=== PATIENT | male | born 1965 | race Caucasian/White ===

== ENCOUNTER 2021-06-08 08:14 | Outpatient (REF) | payer OTHER, SELFPAY ==
[2021-06-08 11:33] LABS: MANUAL DIFF FLAG NO
[2021-06-08 11:39] LABS: Basophils Absolute Auto 0.1 X10*3/uL (0.0-0.2); Basophils Percent Auto 0.8 % (0-2); Eosinophils Absolute Auto 0.1 X10*3/uL (0.0-0.4); Eosinophils Percent Auto 1.2 % (0-4); Hematocrit 48.5 % (42.0-52.0); Hemoglobin 15.9 g/dl (14.0-18.0); Imm Gran Abs Auto 0.04 X10*3/uL (0.00-0.03); Imm Gran Pct Auto 0.6 % (0.0-0.4); Lymphocytes Absolute Auto 1.4 X10*3/uL (1.2-4.9); Lymphocytes Percent Auto 19.9 % (20-40); Mean Corpuscular HGB Conc 32.8 g/dl (31.0-36.0); Mean Corpuscular Hemoglobin 28.6 pg (27.0-33.0); Mean Corpuscular Volume 87.2 fL (80.0-98.0); Mean Platelet Volume 11.2 fL (9.4-12.4); Monocytes Absolute Auto 0.5 X10*3/uL (0.1-1.2); Monocytes Percent Auto 6.8 % (2-11); Neutrophils Absolute Auto 5.1 x10*3/uL (2.0-8.3); Neutrophils Percent Auto 70.7 % (45-73); Platelet Count 190 X10*3/uL (160-400); Red Blood Count 5.56 X10*6/uL (4.60-5.80); Red Cell Distribution Width 12.3 % (11.0-16.0); White Blood Count 7.3 X10*3/uL (4.8-10.8)
[2021-06-08 12:05] LABS: Alanine Aminotransferase 31 U/L (0-40); Albumin Level 4.6 g/dL (3.5-5.0); Alkaline Phosphatase 72 U/L (39-117); Anion Gap 14 (12-20); Aspartate Amino Transferase 21 U/L (5-37); Bilirubin Total 0.8 mg/dL (0.0-1.0); Blood Urea Nitrogen 17 mg/dL (9-16); Calcium 9.6 mg/dL (8.4-10.2); Carbon Dioxide 26 mmol/L (22-29); Chloride 104 mmol/L (96-108); Cholesterol 171 mg/dL; Estimated Glomerular Filt Rate > 60; Glucose Fasting 153 mg/dL (60-99); HDL Cholesterol 35 mg/dL; LDL Cholesterol Calculated 98 mg/dl; Potassium 4.5 mmol/L (3.3-5.1); Sodium 139 mmol/L (135-145); Total Protein 6.9 g/dL (6.5-8.0); Triglycerides 192 mg/dL
[2021-06-08 12:21] LABS: Thyroid Stimulating Hormone 2.01 uIU/mL (0.32-4.0)
[2021-06-09 11:47] LABS: Free Prostate Spec Ag 0.7 ng/mL; Percent Free Prostate Spec Ag 29 % (calc) (>25); Prostate Specific Ag Total 2.4 ng/mL (< OR = 4.0)
[2021-06-10 14:11] LABS: Vitamin D 25-OH Total 32.4 ng/mL (>30)
== END 2021-06-08 08:15 | disposition home or self-care (01) ==
LOC: HO.HMGCLDS 08:14
PROVIDERS: PCP Internal Medicine; Visit Provider Internal Medicine
DX: I10 Essential (primary) hypertension (principal); E78.00 Pure hypercholesterolemia, unspecified; E55.9 Vitamin D deficiency, unspecified; Z91.09 Other allergy status, other than to drugs and biological substances; Z12.5 Encounter for screening for malignant neoplasm of prostate
CPT/HCPCS: 36415; 80053; 80061; 82306; 84154; 84443; 85025

== ENCOUNTER → 2021-08-04 09:00 | Outpatient (REF) | payer OTHER, SELFPAY ==
--- NOTE | 2021-08-04 09:04 | CA_ITS ---
Transthoracic Echocardiogram Patient (Last, First, Middle): Kenan Rojas B Gender: Male Date of : 1965 Age: 56 Procedure Date: 08/04/2021 Procedure Type: Transthoracic Echocardiogram Location: OP Height: 172.72 cm Weight: 74.84 kg BSA: 1.88 m2 Heart Rate: bpm BP: 136 / 68 mmHg Bolt Threader: SB Referring MD: Mitchel Esquivel MD DO Symptoms: I35.0 NON RHEU AVS Study Quality: Adequate ECG Rhythm: Sinus Conclusions: - The left ventricular systolic function is normal. The calculated ejection fraction is 55% by biplane method. - There is severe aortic valve stenosis. - There is mild dilatation of the ascending aorta measuring 4.20 cm. Findings Left Ventricle There is mildly increased left ventricular wall thickness. The left ventricular systolic function is normal. The calculated ejection fraction is 55% by biplane method. There is no evidence of regional wall motion abnormalities. Diastolic function is normal for age. Top normal left ventricular size. Right Ventricle Normal right ventricular cavity size and systolic function. Atria Both atria are normal in size. Aortic Valve There is severe calcification of the aortic valve. There is severe aortic valve stenosis. The peak aortic velocity is 4.18 m/s with a calculated peak gradient of 84 mmHg. The mean gradient is 42 mmHg. The aortic valve area is 0.94 cm2. There is mild aortic valve regurgitation. Possible bicuspid aortic valve. Mitral Valve The mitral valve appears normal. There is no mitral valve regurgitation. There is no mitral valve stenosis. Pulmonic Valve The pulmonic valve is likely normal. Tricuspid Valve There is no tricuspid valve regurgitation. Tricuspid regurgitation envelope is inadequate for calculation of right ventricular systolic pressure. Great Vessels The sinuses of valsalva is normal in size. There is mild dilatation of the ascending aorta measuring 4.20 cm. Venous The inferior vena cava was not well visualized. Pericardium/Pleural There is no evidence of pericardial effusion. Prior Study Comparison Changes noted compared to prior study dated: 04/24/2018. Progression of aortic valve stenosis. Measurements 2D Linear Measurements IVSd: 1.08 0.6-0.9/0.6-1.0 cm LVIDd: 5.44 3.9-5.3/4.2-5.9 cm LVIDd Index: 2.89 2.4-3.2/2.2-3.1 cm/m2 LVIDs: 3.96 2.0-3.6 cm LVPWd: 1.07 0.7-1.1 cm LA Diam: 3.40 2.7-3.8/3.0-4.0 cm LAIDs Index: 1.81 1.5-2.3 cm/m2 LV Mass: 287.31 67-162/88-224 g LV Mass Index: 152.82 43-95/49-115 g/m2 LVOT Diam: 2.10 3.0+(-)1.3 cm 2D Systolic Function EF 4C: 54.40 >55% EF 2C: 58.80 >55% EF BiP: 55.30 >55% Mitral Valve MV Pk E: 0.72 MV PK A: 0.45 MV Decel Time: 124.00 E/A: 1.60 E'Lateral: 6.08 E'Medial: 6.30 E/E' Med: 11.50 E/E' Lat: 11.90 PHT: 36.00 MVA PHT: 6.11 Decel [place]: 5.84 Aortic Valve AoV Pk Jay[place]: 4.18 AoV Mn [place]: 3.06 AoV VTI: 0.96 AoV Pk Grad: 84.00 Aov Mn Grad: 42.20 TAMANNA Cont.VTI: 0.94 AI Pk Jay[place]: 4.05 AI [place]: 3.39 LVOT LVOT Pk Jay[place]: 0.93 LVOT Mn [place]: 0.69 LVOT VTI: 0.26 LVOT Pk Grad: 4.00 LVOT Mn Grad: 2.00 LVOT Diam: 2.10 LVOT Area: 3.46 Diastolic Function MV Pk E: 0.72 MV Pk A: 0.45 E/A: 1.60 E'Medial: 6.30 E/E' Med: 11.50 E' Laterial: 6.08 E/E' Lat: 11.90 Right Ventricle TAPSE (mm): 19.40 TVS' [place]: 8.59 Great Vessels Aorta Sinus of Valsalva: 3.21 2.0-3.[address] [place]: 3.14 1.7-3.4 cm Ao Asc: 4.20 2.1-3.4 cm Ao Arch: 2.60 Pulmonary Valve PV Pk Jay[place]: 0.87 Peak PV Grad: 3.00 Updated in Other Vendor System with Status of Final Josue Colon MD electronically signed on 08/06/2021 12:05:11 PM with status of Final
== END ==
LOC: HO.CARD 09:00
PROVIDERS: PCP Internal Medicine; Visit Provider Internal Medicine
DX: I35.0 Nonrheumatic aortic (valve) stenosis (principal)
CPT/HCPCS: 93306

== ENCOUNTER 2021-08-09 08:03 | Outpatient (REF) | payer OTHER, SELFPAY ==
--- NOTE | ~2021-08-09 | XR_ITS ---
EXAMINATION: XR SHOULDER, RIGHT CLINICAL INFORMATION: Pain COMPARISON: None TECHNIQUE: Three views of the right shoulder. FINDINGS: Bone alignment is normal. No fracture or dislocation is seen. The glenohumeral joint is normal. 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 There are faint soft tissue calcifications adjacent to the greater tuberosity. 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
== END 2021-08-09 08:04 | disposition home or self-care (01) ==
LOC: HO.HOSX 08:03
PROVIDERS: Visit Provider Physician Assistant
DX: M75.101 Unspecified rotator cuff tear or rupture of right shoulder, not specified as traumatic (principal)
CPT/HCPCS: 20610; 73030; J1040

== ENCOUNTER → 2021-08-23 13:49 | Outpatient (BNVA) | payer OTHER, SELFPAY | PROVIDERS: PCP Internal Medicine; Referring Provider Internal Medicine; Visit Provider Internal Medicine Cardiovascular Disease | DX: I35.0 Nonrheumatic aortic (valve) stenosis (principal) | CPT/HCPCS: 93005 ==

== ENCOUNTER 2021-09-01 15:00 | Outpatient (RCR) | payer OTHER, SELFPAY ==
--- NOTE | 2021-08-27 14:33 | MHC.PT.EP ---
[facility] [place] Office [place] Office [place] Office [address] [phone] F: [phone] F: [phone] F: [phone] F: [phone] Physical Therapy Plan of Care Date of Evaluation: Date of Surgery: NA Diagnosis: R SHLDER PAIN, PAINFUL ARC SYNDROME R Assessment: Pt IS 56 YO RHD M REFERRED TO PT FROM [facility]THO ([place]) WITH R SHOULDER PAINFUL ARC SYNDROME. 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 PRESENTS WITH SXS OF IMPINGEMENT R SHLDER WITH ANT HUMERUS POSTURE, SOME TIGHTNESS IN CAPSULE WITH LIMITED ABD AND ER ROM, DECREASED R SHLDER STRENGTH. REPORTS TEMP RELIEF WITH CORTISONE INJECTION. GOOD PT CANDIDATE TO ADDRESS THESE ISSUES. OF NOTE Pt WITH R SHIFTED POSTURE (REPORTS NO HX OF SCOLIOSIS OR BACK ISSUES) Frequency and Duration: The patient will be seen 2X/WK X 6 WKS Short Term Goals: 1. INCREASED POSTURE AWARENESS AND AWARENESS SHLDER CARE 2. I HEP WITH DC EX PLAN Assistant Dean Goals: 1. INCREASED R SHLDER ER AND ABD ROM 10 DEGREES EA 2. DECREASED R SHLDER PAIN AT LEAST 50% WITH ADLS Treatment Plan: Modalities to reduce pain, spasms and effusion. Manual therapy to restore motion and function. Therapeutic exercise to improve strength and flexibility. Neuromuscular re-education for posture and balance. Therapeutic activities to return to functional activities of daily living. Electronically signed by: LANDY CLEANING PT Please sign and return to therapist. Thank you for your referral.
--- NOTE | 2021-09-22 15:10 | MHC.PT.DC ---
[facility] [place] Office [place] [facility] [place] Office [address] Dannielle Lipscomb [address] [phone] F: [phone] F: [phone] F: [phone] F: [phone] Physical Therapy Discharge Report Diagnosis: R SHLDER PAIN, PAINFUL ARC SYNDROME R Date of Surgery: NA Date of Evaluation: 08/27/21 Date of Discharge: 09/22/21 Treatments to Date: 3 Cancellations to Date: No Shows to Date: Discharge Status: Patient Elected to Stop Discharge Summary: Pt SEEN FOR INIT EVAL AND 2 VISITS STARTED ON HEP FOR R SHOULDER. PER ASSESSMENT AT LAST SESSION ON 09/01/21 PER NOTE FROM MICHAEL MORALES JEWELRY DRILL OPERATOR :'Kenan needed frequent VC throughout exercises to maintain correct movement pattern. Wall flexion was trialed with a RTB but he could not maintain correct pattern due to coordination.' Pt THEN CANCELLED LAST 2 SCHEDULED APPTS STATING (PER ASSEMBLER DRY CELL AND BATTERY NOTE) COPAY IS TOO MUCH FOR HIM Electronically signed by: LANDY CLEANING PT Please sign and return to therapist. Thank you for your referral.
== END 2021-09-22 15:11 | disposition home or self-care (01) ==
LOC: HO.PT 15:00
PROVIDERS: PCP Internal Medicine; Visit Provider Physician Assistant
DX: M75.101 Unspecified rotator cuff tear or rupture of right shoulder, not specified as traumatic (principal)
CPT/HCPCS: 97110; 97161; 97535

== ENCOUNTER → 2022-01-20 13:03 | Outpatient (REF) | payer OTHER, SELFPAY ==
--- NOTE | 2022-01-20 13:05 | CA_ITS ---
Transthoracic Echocardiogram Amended Patient (Last, First, Middle): Kenan Rojas B Gender: Male Date of : 1965 Age: 56 Procedure Date: 01/20/2022 Procedure Type: Transthoracic Echocardiogram Location: OP Height: 175.26 cm Weight: 70.31 kg BSA: 1.85 m2 Heart Rate: bpm BP: 112 / 64 mmHg Flanging Operator: YENY Referring MD: George Hinds MD Director Sales And Trade Marketing: George Hinds MD Symptoms: I35.0 - Nonrheumatic aortic (valve) stenosis Study Quality: Adequate Conclusions: - Normal left ventricular size, thickness, systolic function, and wall motion. The visually estimated ejection fraction is between 65-70%. - E/E prime ratio is between 8 and 15 consistent with indeterminate filling pressures. - Normal right ventricular cavity size and systolic function. - There is severe calcification of the aortic valve. There is moderate thickening of the aortic valve. There is severe aortic valve stenosis. The peak aortic velocity is 4.68 m/s with a calculated peak gradient of 88 mmHg. The mean gradient is 53 mmHg. The aortic valve area is 0.78 cm2. There is moderate aortic valve regurgitation. - There is mild dilatation of the ascending aorta measuring 4.20 cm. Findings Left Ventricle Normal left ventricular size, thickness, systolic function, and wall motion. The visually estimated ejection fraction is between 65-70%. Abnormal diastolic function is noted. Spectral Doppler is indicative of a pseudonormal filling pattern. E/E prime ratio is between 8 and 15 consistent with indeterminate filling pressures. Right Ventricle Normal right ventricular cavity size and systolic function. Atria The left atrium is severely dilated. The right atrium is mildly dilated. Aortic Valve There is severe calcification of the aortic valve. There is moderate thickening of the aortic valve. There is severe aortic valve stenosis. The peak aortic velocity is 4.68 m/s with a calculated peak gradient of 88 mmHg. The mean gradient is 53 mmHg. The aortic valve area is 0.78 cm2. There is moderate aortic valve regurgitation. Mitral Valve Normal mitral valve structure and function. There is no mitral valve regurgitation. There is no mitral valve stenosis. Pulmonic Valve The pulmonic valve is likely normal. Tricuspid Valve Normal tricuspid valve structure. There is trace tricuspid valve regurgitation. Tricuspid regurgitation envelope is inadequate for calculation of right ventricular systolic pressure. Normal right atrial pressure. Great Vessels There is mild dilatation of the ascending aorta measuring 4.20 cm. The visualized portions of the pulmonary artery and branches are normal. Venous The inferior vena cava is normal in size and collapses greater than 50% with inspiration. Pericardium/Pleural There is no evidence of pericardial effusion. Prior Study Comparison Changes noted compared to prior study dated: 08/04/2021. Severe present. gradient is higher and valve area has worsened. Measurements 2D Linear Measurements IVSd: 1.08 0.6-0.9/0.6-1.0 cm LVIDd: 4.87 3.9-5.3/4.2-5.9 cm LVIDd Index: 2.63 2.4-3.2/2.2-3.1 cm/m2 LVIDs: 3.18 2.0-3.6 cm LVPWd: 1.03 0.7-1.1 cm LA Diam: 4.20 2.7-3.8/3.0-4.0 cm LAIDs Index: 2.27 1.5-2.3 cm/m2 LV Mass: 233.55 67-162/88-224 g LV Mass Index: 126.24 43-95/49-115 g/m2 LVOT Diam: 2.10 3.0+(-)1.3 cm 2D Volumes LA Vol: 47.70 2D Systolic Function EF 4C: 62.30 >55% EF 2C: 59.60 >55% EF BiP: 60.90 >55% Mitral Valve MV Pk E: 0.96 MV PK A: 0.55 MV Decel Time: 159.00 E/A: 1.80 E'Lateral: 8.27 E'Medial: 7.18 E/E' Med: 13.40 E/E' Lat: 11.70 PHT: 46.00 MVA PHT: 4.78 Decel [place]: 6.08 Aortic Valve AoV Pk Jaylen: 4.68 AoV Mn [place]: 3.45 AoV VTI: 1.17 AoV Pk Grad: 88.00 Aov Mn Grad: 53.00 TAMANNA Cont.VTI: 0.78 LVOT LVOT Pk [place]: 1.01 LVOT Mn [place]: 0.69 LVOT VTI: 0.27 LVOT Pk Grad: 4.00 LVOT Mn Grad: 2.00 LVOT Diam: 2.10 LVOT Area: 3.46 Diastolic Function MV Pk E: 0.96 MV Pk A: 0.55 E/A: 1.80 E'Medial: 7.18 E/E' Med: 13.40 E' Laterial: 8.27 E/E' Lat: 11.70 Right Ventricle TAPSE (mm): 28.10 TVS' [place]: 11.70 Tricuspid Valve RA Press: 3.00 Great Vessels Aorta Sinus of Valsalva: 3.53 2.0-3.5 cm Ao Asc: 4.20 2.1-3.4 cm Updated in Other Vendor System with Status of Final George Hinds MD electronically signed on 01/31/2022 1:19:40 PM with status of Final
== END ==
LOC: HO.CARD 13:03
PROVIDERS: PCP Internal Medicine; Visit Provider Internal Medicine Cardiovascular Disease
DX: I35.0 Nonrheumatic aortic (valve) stenosis (principal)
CPT/HCPCS: 93306

== ENCOUNTER 2022-02-15 07:18 | Outpatient (REF) | payer OTHER, SELFPAY ==
[2022-02-15 07:53] LABS: Hematocrit 48.9 % (42.0-52.0); Mean Corpuscular HGB Conc 32.7 g/dl (31.0-36.0); Mean Corpuscular Hemoglobin 28.6 pg (27.0-33.0); Mean Corpuscular Volume 87.3 fL (80.0-98.0); Mean Platelet Volume 10.6 fL (9.4-12.4); Platelet Count 158 X10*3/uL (160-400); Red Cell Distribution Width 12.2 % (11.0-16.0); White Blood Count 8.8 X10*3/uL (4.8-10.8)
[2022-02-15 07:59] LABS: INTERNATIONAL NORM RATIO 1.1 (0.9-1.1); Prothrombin Time 12.8 SEC (10.0-13.1)
[2022-02-15 09:40] LABS: Anion Gap 14 (12-20); Blood Urea Nitrogen 20 mg/dL (9-16); Calcium 9.8 mg/dL (8.4-10.2); Carbon Dioxide 28 mmol/L (22-29); Chloride 104 mmol/L (96-108); Estimated Glomerular Filt Rate > 60; Glucose Random 136 mg/dL (60-115); Potassium 4.5 mmol/L (3.3-5.1); Sodium 141 mmol/L (135-145)
== END 2022-02-15 07:19 | disposition home or self-care (01) ==
LOC: HO.LAB 07:18
PROVIDERS: PCP Internal Medicine; Visit Provider Internal Medicine Cardiovascular Disease
DX: I35.0 Nonrheumatic aortic (valve) stenosis (principal)
CPT/HCPCS: 36415; 80048; 85027; 85610

== ENCOUNTER → 2022-04-07 15:35 | Outpatient (BNVA) | payer OTHER, SELFPAY | PROVIDERS: PCP Internal Medicine; Visit Provider Internal Medicine Cardiovascular Disease | DX: Z95.2 Presence of prosthetic heart valve (principal) | CPT/HCPCS: 93005 ==

== ENCOUNTER → 2022-04-12 09:51 | Outpatient (REF) | payer OTHER, SELFPAY ==
--- NOTE | 2022-04-12 09:55 | CA_ITS ---
Transthoracic Echocardiogram Patient (Last, First, Middle): Kenan Rojas B Gender: Male Date of : 1965 Age: 56 Procedure Date: 04/12/2022 Procedure Type: Transthoracic Echocardiogram Location: OP Height: 175.26 cm Weight: 70.31 kg BSA: 1.85 m2 Heart Rate: 62 bpm BP: 115 / 68 mmHg Quality Control Specialist: TO Referring MD: George Hinds MD Sausage Stuffer: George Hinds MD Symptoms: Z95.2 - Presence of prosthetic heart valve Study Quality: Adequate w contrast ECG Rhythm: Sinus Conclusions: - The left ventricular systolic function is mildly decreased. The calculated ejection fraction is 50% by biplane method. - There is moderate to severely decreased right ventricular systolic function. - A bioprosthetic aortic valve is present. The prosthetic aortic valve appears to be functioning normally. Findings Procedure Information Contrast agent, definity, is being given per protocol without apparent complications. Left Ventricle Normal left ventricular cavity size. There is mildly increased left ventricular wall thickness. The left ventricular systolic function is mildly decreased. The calculated ejection fraction is 50% by biplane method. There is no evidence of regional wall motion abnormalities. There is paradoxical septal motion consistent with post-operative status. Diastolic function is normal for age. Right Ventricle Normal right ventricular cavity size. There is moderate to severely decreased right ventricular systolic function. Atria Both atria are normal in size. Aortic Valve A bioprosthetic aortic valve is present. The prosthetic aortic valve appears to be functioning normally. The mean gradient is 7 mmHg. There is no aortic valve regurgitation. Mitral Valve The mitral valve appears normal. There is no mitral valve regurgitation. There is no mitral valve stenosis. Pulmonic Valve The pulmonic valve is likely normal. Tricuspid Valve Normal tricuspid valve structure. There is no tricuspid valve regurgitation. There is no evidence of pulmonary hypertension. Great Vessels There is mild dilatation of the ascending aorta measuring 4.30 cm. Venous The inferior vena cava is normal in size and collapses greater than 50% with inspiration. Pericardium/Pleural There is no evidence of pericardial effusion. Prior Study Comparison Changes noted compared to prior study dated: 01/20/2022. s/ AVR; decrease in LVEF. Measurements 2D Linear Measurements IVSd: 1.15 0.6-0.9/0.6-1.0 cm LVIDd: 4.88 3.9-5.3/4.2-5.9 cm LVIDd Index: 2.64 2.4-3.2/2.2-3.1 cm/m2 LVIDs: 3.70 2.0-3.6 cm LVPWd: 1.21 0.7-1.1 cm LA Diam: 4.00 2.7-3.8/3.0-4.0 cm LAIDs Index: 2.16 1.5-2.3 cm/m2 LV Mass: 273.82 67-162/88-224 g LV Mass Index: 148.01 43-95/49-115 g/m2 LVOT Diam: 2.00 3.0+(-)1.3 cm 2D Systolic Function EF 4C: 52.20 >55% EF 2C: 51.20 >55% EF BiP: 50.40 >55% Mitral Valve MV Pk E: 0.69 MV PK A: 0.42 MV Decel Time: 171.00 E/A: 1.70 E'Lateral: 10.20 E'Medial: 4.03 E/E' Med: 17.20 E/E' Lat: 6.80 PHT: 50.00 MVA PHT: 4.40 Decel [place]: 4.06 Aortic Valve AoV Pk Jay[place]: 1.78 AoV Mn [place]: 1.18 AoV VTI: 0.33 AoV Pk Grad: 13.00 Aov Mn Grad: 7.00 TAMANNA Cont.VTI: 1.67 LVOT LVOT Pk [place]: 0.88 LVOT Mn [place]: 0.56 LVOT VTI: 0.18 LVOT Pk Grad: 3.00 LVOT Mn Grad: 1.00 LVOT Diam: 2.00 LVOT Area: 3.14 Diastolic Function MV Pk E: 0.69 MV Pk A: 0.42 E/A: 1.70 E'Medial: 4.03 E/E' Med: 17.20 E' Laterial: 10.20 E/E' Lat: 6.80 Right Ventricle TAPSE (mm): 10.20 TVS' [place]: 5.66 Tricuspid Valve RA Press: 3.00 Great Vessels Aorta Ao Asc: 4.30 2.1-3.4 cm Updated in Other Vendor System with Status of Final Josue Colon MD electronically signed on 04/15/2022 11:29:09 AM with status of Final
== END ==
LOC: HO.CARD 09:51
PROVIDERS: PCP Internal Medicine; Visit Provider Internal Medicine Cardiovascular Disease
DX: Z95.2 Presence of prosthetic heart valve (principal)
CPT/HCPCS: 93306; Q9957

== ENCOUNTER 2022-05-02 10:07 | Outpatient (REF) | payer OTHER, SELFPAY ==
[2022-05-02 11:33] LABS: Anion Gap 14 (12-20); Blood Urea Nitrogen 27 mg/dL (9-16); Calcium 9.4 mg/dL (8.4-10.2); Carbon Dioxide 27 mmol/L (22-29); Chloride 107 mmol/L (96-108); Estimated Glomerular Filt Rate > 60; Glucose Random 76 mg/dL (60-115); Potassium 4.7 mmol/L (3.3-5.1); Sodium 143 mmol/L (135-145)
== END 2022-05-02 10:08 | disposition home or self-care (01) ==
LOC: HO.LAB 10:07
PROVIDERS: PCP Internal Medicine; Visit Provider Internal Medicine Cardiovascular Disease
DX: I51.9 Heart disease, unspecified (principal); I35.0 Nonrheumatic aortic (valve) stenosis
CPT/HCPCS: 36415; 80048

== ENCOUNTER 2022-05-06 09:44 | Outpatient (REF) | payer OTHER, SELFPAY ==
--- NOTE | ~2022-05-06 | CT_ITS ---
EXAMINATION: CT ANGIOGRAM OF THE CHEST WITH AND WITHOUT CONTRAST (CT PULMONARY ANGIOGRAM FOR PE) CLINICAL INFORMATION: Reason for Exam I51.9 - Heart disease, unspecified COMPARISON: Previous chest x-ray and chest CTA from February 2008 TECHNIQUE: Prior to contrast administration, noncontrast localization images were obtained. Subsequently, multidetector volumetric imaging was performed from the thoracic inlet to below the diaphragms following the administration of 65 mL Omnipaque 350 intravenous contrast. No contrast reaction reported Sagittal, coronal, and MIP oblique sagittal reformatted images were obtained on the CT workstation, uploaded to PACS, and reviewed. This CT examination was performed using dose optimization techniques as appropriate, variously including the following: *Automated exposure control *Adjustment of mA and/or kV according to patient size (this includes techniques or standardized protocols for targeted exams where dose is matched to indication/reason for exam; i.e. extremities or head) *Use of iterative reconstruction technique Total exam dose-length product 135 mGy-cm FINDINGS: QUALITY OF STUDY/CONTRAST BOLUS: Satisfactory. PULMONARY ARTERIES: No central or segmental pulmonary emboli. THORACIC AORTA: No aneurysm or dissection. LUN mm right lower lobe nodule axial image 381 series 11. This is stable from 2008 exam and therefore probably benign. There is mild dependent atelectasis. The lungs are otherwise clear. PLEURA: No pleural effusion or pneumothorax. MEDIASTINUM: Aortic valve replacement. Normal heart size. No pericardial effusion. Slightly dilated ascending thoracic aorta measuring 4.3 cm. Normal caliber aortic arch and descending thoracic aorta. Known enlarged hilar or mediastinal lymph nodes. CORONARY ARTERY CALCIFICATION: None visualized on this study. CHEST WALL/AXILLA: No axillary or internal mammary lymphadenopathy. OSSEOUS STRUCTURES: No acute or suspicious osseous abnormality. Degenerative changes of the spine. Median sternotomy wires. UPPER ABDOMEN: Unremarkable. No reflux of contrast into the hepatic veins to suggest elevated right heart pressures. CT/CT angio chest PE protocol IMPRESSION: No evidence of pulmonary embolism. Postoperative changes following aortic valve replacement. Mild coronary artery calcification. 8 mm stable right lower lobe nodule from 2007. VTE: negative
[2022-05-06] MEDS: iohexoL 350 MG/ML 100 ML INFUS..BTL IV (10:35)
== END 2022-05-06 09:45 | disposition home or self-care (01) ==
LOC: HO.CT 09:44
PROVIDERS: Visit Provider Internal Medicine Cardiovascular Disease
DX: I51.9 Heart disease, unspecified (principal)
CPT/HCPCS: 71275; Q9967

== ENCOUNTER → 2022-08-19 10:48 | Outpatient (BNVA) | payer OTHER, SELFPAY | PROVIDERS: PCP Internal Medicine; Referring Provider Internal Medicine; Visit Provider Internal Medicine Cardiovascular Disease | DX: I51.9 Heart disease, unspecified (principal); Z95.2 Presence of prosthetic heart valve | CPT/HCPCS: 93005 ==

== ENCOUNTER → 2022-09-07 13:50 | Outpatient (REF) | payer OTHER, SELFPAY ==
--- NOTE | 2022-09-07 13:54 | CA_ITS ---
Transthoracic Echocardiogram Patient (Last, First, Middle): Kenan Rojas B Gender: Male Date of : 1965 Age: 57 Procedure Date: 09/07/2022 Procedure Type: Transthoracic Echocardiogram Location: OP Height: 175.26 cm Weight: 76.4 kg BSA: 1.92 m2 Heart Rate: 63 bpm BP: 120 / 75 mmHg Oil Seal Assembler: KATHLEEN Bowers MD: George Hinds MD Spike Machine Feeder: George Hinds MD Symptoms: I51.9 - Heart disease, unspecified Study Quality: Fair ECG Rhythm: Sinus Conclusions: - Normal left ventricular size and systolic function. There is mildly increased left ventricular wall thickness. The visually estimated ejection fraction is between 55-60%. - Normal right ventricular cavity size. There is borderline right ventricular systolic function. TAPSE is reduced which is common after cardiotomy but RV free wall function is good. - A bioprosthetic aortic valve is present. The prosthetic aortic valve appears to be functioning normally. - There is mild dilatation of the ascending aorta measuring 4.40 cm. Findings Left Ventricle Normal left ventricular size and systolic function. There is mildly increased left ventricular wall thickness. The visually estimated ejection fraction is between 55-60%. There is no evidence of regional wall motion abnormalities. Diastolic function is normal for age. Right Ventricle Normal right ventricular cavity size. There is borderline right ventricular systolic function. Atria Both atria are normal in size. Aortic Valve A bioprosthetic aortic valve is present. The prosthetic aortic valve appears to be functioning normally. There is no aortic valve stenosis. There is no aortic valve regurgitation. Mitral Valve The mitral valve appears normal. There is no mitral valve regurgitation. There is no mitral valve stenosis. Pulmonic Valve Normal pulmonic valve structure and function. There is no pulmonic valve regurgitation. Tricuspid Valve Normal tricuspid valve structure and function. There is no tricuspid valve regurgitation. Normal right atrial pressure. There is no evidence of pulmonary hypertension. Great Vessels There is mild dilatation of the ascending aorta measuring 4.40 cm. Venous The inferior vena cava is normal in size and collapses greater than 50% with inspiration. Pericardium/Pleural There is no evidence of pericardial effusion. Prior Study Comparison Changes noted compared to prior study dated: 04/12/2022. RV function is borderline reduced. Measurements 2D Linear Measurements IVSd: 1.03 0.6-0.9/0.6-1.0 cm LVIDd: 4.59 3.9-5.3/4.2-5.9 cm LVIDd Index: 2.39 2.4-3.2/2.2-3.1 cm/m2 LVIDs: 2.80 2.0-3.6 cm LVPWd: 1.07 0.7-1.1 cm LA Diam: 3.70 2.7-3.8/3.0-4.0 cm LAIDs Index: 1.93 1.5-2.3 cm/m2 LV Mass: 210.82 67-162/88-224 g LV Mass Index: 109.80 43-95/49-115 g/m2 LVOT Diam: 2.10 3.0+(-)1.3 cm 2D Systolic Function EF 4C: 50.30 >55% EF 2C: 55.80 >55% EF BiP: 53.30 >55% Mitral Valve MV Pk E: 0.68 MV PK A: 0.59 MV Decel Time: 167.00 E/A: 1.20 E'Lateral: 10.00 E'Medial: 6.53 E/E' Med: 10.40 E/E' Lat: 6.80 PHT: 49.00 MVA PHT: 4.49 Decel [place]: 4.07 Aortic Valve AoV Pk [place]: 1.76 AoV Mn [place]: 1.27 AoV VTI: 0.34 AoV Pk Grad: 12.00 Aov Mn Grad: 8.00 TAMANNA Cont.VTI: 2.17 LVOT LVOT Pk [place]: 1.04 LVOT Mn [place]: 0.75 LVOT VTI: 0.21 LVOT Pk Grad: 4.00 LVOT Mn Grad: 3.00 LVOT Diam: 2.10 LVOT Area: 3.46 Diastolic Function MV Pk E: 0.68 MV Pk A: 0.59 E/A: 1.20 E'Medial: 6.53 E/E' Med: 10.40 E' Laterial: 10.00 E/E' Lat: 6.80 Right Ventricle TAPSE (mm): 10.60 TVS' [place]: 8.03 Tricuspid Valve TR Pk [place]: 1.85 TR Pk Grad: 14.00 RA Press: 3.00 RVSP: 17.00 Great Vessels Aorta Sinus of Valsalva: 3.50 2.0-3.5 cm Ao Asc: 4.40 2.1-3.4 cm Pulmonary Valve PV Pk [place]: 0.79 Peak PV Grad: 2.00 Updated in Other Vendor System with Status of Final George Hinds MD electronically signed on 09/08/2022 10:12:35 AM with status of Final
== END ==
LOC: HO.CARD 13:50
PROVIDERS: PCP Internal Medicine; Visit Provider Internal Medicine Cardiovascular Disease
DX: I51.9 Heart disease, unspecified (principal)
CPT/HCPCS: 93306

== ENCOUNTER 2022-10-04 09:16 | Outpatient (REF) | payer OTHER, SELFPAY ==
[2022-10-04 09:36] LABS: MANUAL DIFF FLAG NO
[2022-10-04 09:59] LABS: Basophils Absolute Auto 0.1 X10*3/uL (0.0-0.2); Basophils Percent Auto 0.8 % (0-2); Eosinophils Absolute Auto 0.1 X10*3/uL (0.0-0.4); Eosinophils Percent Auto 1.7 % (0-4); Hemoglobin 15.6 g/dl (14.0-18.0); Imm Gran Abs Auto 0.02 X10*3/uL (0.00-0.03); Imm Gran Pct Auto 0.3 % (0.0-0.4); Lymphocytes Absolute Auto 1.9 X10*3/uL (1.2-4.9); Lymphocytes Percent Auto 25.1 % (20-40); Mean Corpuscular HGB Conc 32.5 g/dl (31.0-36.0); Mean Corpuscular Hemoglobin 28.3 pg (27.0-33.0); Mean Platelet Volume 10.8 fL (9.4-12.4); Monocytes Absolute Auto 0.6 X10*3/uL (0.1-1.2); Monocytes Percent Auto 8.2 % (2-11); Neutrophils Absolute Auto 4.8 x10*3/uL (2.0-8.3); Neutrophils Percent Auto 63.9 % (45-73); Platelet Count 183 X10*3/uL (160-400); Red Blood Count 5.52 X10*6/uL (4.60-5.80); White Blood Count 7.4 X10*3/uL (4.8-10.8)
[2022-10-04 10:54] LABS: Alanine Aminotransferase 30 U/L (0-40); Albumin Level 4.5 g/dL (3.5-5.0); Alkaline Phosphatase 76 U/L (39-117); Anion Gap 12 (12-20); Aspartate Amino Transferase 23 U/L (5-37); Bilirubin Total 0.9 mg/dL (0.0-1.0); Blood Urea Nitrogen 22 mg/dL (9-16); Calcium 9.5 mg/dL (8.4-10.2); Carbon Dioxide 28 mmol/L (22-29); Chloride 105 mmol/L (96-108); Cholesterol 134 mg/dL; Estimated Glomerular Filt Rate > 60; Glucose Fasting 111 mg/dL (60-99); HDL Cholesterol 35 mg/dL; LDL Cholesterol Calculated 77 mg/dl; Potassium 4.4 mmol/L (3.3-5.1); Sodium 141 mmol/L (135-145); Total Protein 7.1 g/dL (6.5-8.0); Triglycerides 114 mg/dL
[2022-10-04 11:00] LABS: Thyroid Stimulating Hormone 1.87 uIU/mL (0.32-4.0); Vitamin D 25-OH Total 57.5 ng/mL (>30)
== END 2022-10-04 09:17 | disposition home or self-care (01) ==
LOC: HO.LAB 09:16
PROVIDERS: PCP Internal Medicine; Visit Provider Internal Medicine
DX: I35.0 Nonrheumatic aortic (valve) stenosis (principal); E78.00 Pure hypercholesterolemia, unspecified; E55.9 Vitamin D deficiency, unspecified; Z91.09 Other allergy status, other than to drugs and biological substances
CPT/HCPCS: 36415; 80053; 80061; 82306; 84443; 85025

== ENCOUNTER 2022-12-19 13:08 | Outpatient (AMB) | payer OTHER, SELFPAY ==
[2022-12-19 13:13] VITALS: BP 114/72; PULSE 88; BMI 24.9
--- NOTE | 2022-12-19 13:13 | A.OFFVIS_ITS ---
Intake Vital Signs 12/19/22 13:13 Height 5 ft 9 in Weight 168 lb 6.931 oz BMI 24.9 BP 114/72 Blood Pressure Location Lt brachial Position Sitting Pulse 88 Pulse Source Pulse Oximeter Intake Visit Reasons: 4 month f/u after echo Intake Note: 4 month f/u after echo Boom Boss: Boom Boss Present Accompanied by: Father Allergies No Known Allergies [No Known Allergies*] Allergy (Verified 12/19/22 13:18) Medication List - Last Reconciled 12/19/22 by George Hinds MD ascorbate calcium (vitamin C) 500 mg PO QDAY aspirin 81 mg PO DAILY cetirizine (Zyrtec) 10 mg PO DAILY PRN fluticasone propionate 50 mcg/actuation sprays intranasal metoprolol succinate ER 75 mg (3 x 25 mg) PO DAILY simvastatin 20 mg PO QPM HPI HPI Comments History of Present Illness Details 57-year-old gentleman with severe aortic valve stenosis who is status post aortic valve replacement with a 25 mm Inspiris valve on 03/24/[address] Hakeem Cortes. He is doing well after surgery. He has no chest discomfort shortness of breath. No dizziness or syncope. His echocardiography post surgery showed moderate severe right ventricular dysfunction. He has not had any symptoms. He underwent CTA to rule out pulmonary embolism. He returns for follow-up and continues to be active without any exertional symptoms. He was advised to stop amiodarone after 1 month but still has amiodarone as an active drug on his list. He is unclear whether he is taking it or not. I have explained it to him and his father that they need to check the medication bottles and call us whether he is taking it or not. In any case he should not be on amiodarone anymore. He is asking about dental workup and whether he needs antibiotics. He will need antibiotic prophylaxis before any dental workup in the future. 12/19/2022-he returns for follow-up. He had repeat echocardiography in August 2022. LV function is normal 55-60%. Normal right ventricular cavity size with borderline RV systolic function. Bioprosthetic aortic valve which appears to be functioning normally. He is working and is active at his work. No chest discomfort shortness of breath. No signs/symptoms of heart failure. [facility] Medical History (Updated 04/15/22 @ 15:00 by George Hinds MD) Severe aortic stenosis High cholesterol High blood pressure Surgical History History of heart bypass surgery Deviated nasal septum History of appendectomy Family History Mother No problems noted. Father No problems noted. Social History Alcohol intake: never Patient Tobacco Use Status: Former Tobacco user Quit Date: 2021 Tobacco use type: Cigar Years Smoked: 10 +/- off/on only cigars Review of Systems ENT Reports dizziness Card Denies chest pain, Denies chest pain at rest, Denies chest pain with activity, Denies rapid heart rate, Denies pedal edema, Denies edema, Denies leg edema, Denies lightheadedness, Denies palpitations, Denies dyspnea, Denies dyspnea on exertion and Denies orthopnea Resp Denies cough, Denies dyspnea and Denies dyspnea on exertion GI Denies hematochezia and Denies change in stool character Musc Denies abnormal gait, Reports limited range of motion, Reports muscle cramps, Denies muscle weakness, Denies numbness, Denies radiating pain into limb, Denies stiffness and Denies tingling Neuro Denies abnormal gait, Reports dizziness, Denies numbness and Denies tingling Endo Denies palpitations Physical Exam Vital Signs: Last Vital Signs Pulse 88 12/19/22 13:13 BP 114/72 12/19/22 13:13 BMI result Body Mass Index 24.9 GENERAL APPEARANCE: in no acute distress, pleasant. NECK: no carotid bruit, no jugular venous distention. SKIN: no suspicious lesions, warm and dry. HEART: no murmurs, regular rate and rhythm. LUNGS: clear to auscultation bilaterally. ABDOMEN: soft, nontender. EXTREMITIES: no edema. PERIPHERAL PULSES: equal. NEUROLOGIC: No gross deficits, AAO X 3 Assessment & Plan Assessment & Plan (1) S/P AVR: Code(s): Z95.2 - Presence of prosthetic heart valve Plan Pleasant 57 gentleman is here for follow-up. He is status post aortic valve replacement for severe aortic valve stenosis. Echocardiography post has shown RV dysfunction. Quite commonly TAPSE values are low after cardiotomy and may overestimate the degree of RV dysfunction. In my opinion is RV function is borderline reduced. He does not have any significant symptoms of right ventricular dysfunction. Clinically stable at this point. He was advised to see us once a year. Thank you for allowing me to participate in the care of your patient. Please feel free to contact me if you have any questions. Coding Level of Care Code Est Pt Level 3 (97192) Diagnoses S/P AVR Z95.2
== END 2022-12-19 13:40 | disposition home or self-care (01) ==
PROVIDERS: PCP Internal Medicine; Visit Provider Internal Medicine Cardiovascular Disease
DX: Z95.2 Presence of prosthetic heart valve (principal)
CPT/HCPCS: 99213

== ENCOUNTER → 2022-12-19 13:08 | Outpatient (BNVA) | payer OTHER, SELFPAY | PROVIDERS: PCP Internal Medicine; Visit Provider Internal Medicine Cardiovascular Disease ==

== ENCOUNTER 2023-04-28 07:06 | Outpatient (REF) | payer OTHER, SELFPAY ==
[2023-04-28 07:22] LABS: MANUAL DIFF FLAG NO
[2023-04-28 07:56] LABS: Basophils Absolute Auto 0.1 X10*3/uL (0.0-0.2); Basophils Percent Auto 1.1 % (0-2); Eosinophils Absolute Auto 0.2 X10*3/uL (0.0-0.4); Eosinophils Percent Auto 2.7 % (0-4); Hematocrit 48.7 % (42.0-52.0); Hemoglobin 16.2 g/dl (14.0-18.0); Imm Gran Abs Auto 0.03 X10*3/uL (0.00-0.03); Imm Gran Pct Auto 0.4 % (0.0-0.4); Lymphocytes Absolute Auto 1.4 X10*3/uL (1.2-4.9); Lymphocytes Percent Auto 20.2 % (20-40); Mean Corpuscular HGB Conc 33.3 g/dl (31.0-36.0); Mean Corpuscular Hemoglobin 28.2 pg (27.0-33.0); Mean Corpuscular Volume 84.8 fL (80.0-98.0); Mean Platelet Volume 10.3 fL (9.4-12.4); Monocytes Absolute Auto 0.6 X10*3/uL (0.1-1.2); Monocytes Percent Auto 8.3 % (2-11); Neutrophils Absolute Auto 4.7 x10*3/uL (2.0-8.3); Neutrophils Percent Auto 67.3 % (45-73); Platelet Count 172 X10*3/uL (160-400); Red Blood Count 5.74 X10*6/uL (4.60-5.80); Red Cell Distribution Width 12.3 % (11.0-16.0)
[2023-04-28 07:57] LABS: Appearance Urine Clear; Color Urine Yellow; Glucose Urine UA Negative (Negative); Leukocyte Esterase Urine Negative (Negative); Nitrite Urine Negative (Negative); PH 5.5 (5.0-9.0); Urine Blood Negative (Negative); Urine Ketones Negative (Negative); Urine Protein Negative (Neg-Trace)
[2023-04-28 08:50] LABS: Alanine Aminotransferase 41 U/L (0-40); Albumin Level 4.4 g/dL (3.5-5.0); Alkaline Phosphatase 123 U/L (39-117); Anion Gap 12 (12-20); Aspartate Amino Transferase 25 U/L (5-37); Bilirubin Total 0.4 mg/dL (0.0-1.0); Blood Urea Nitrogen 16 mg/dL (9-16); Calcium 9.1 mg/dL (8.4-10.2); Carbon Dioxide 27 mmol/L (22-29); Chloride 107 mmol/L (96-108); Cholesterol 137 mg/dL (<200); Estimated Glomerular Filt Rate > 60; Glucose Fasting 157 mg/dL (60-99); HDL Cholesterol 32 mg/dL (>40); LDL Cholesterol Calculated 84 mg/dL (<100); Potassium 4.2 mmol/L (3.3-5.1); Sodium 142 mmol/L (135-145); Triglycerides 105 mg/dL (<150)
[2023-04-28 08:56] LABS: PSA,Total (Free>4and<10) 2.74 ng/mL (0.00-4.00)
[2023-04-28 09:10] LABS: Thyroid Stimulating Hormone 1.78 uIU/mL (0.32-4.0); Vitamin D 25-OH Total 44.5 ng/mL (>30)
== END 2023-04-28 07:07 | disposition home or self-care (01) ==
LOC: HO.LAB 07:06
PROVIDERS: PCP Internal Medicine; Visit Provider Internal Medicine
DX: Z00.00 Encounter for general adult medical examination without abnormal findings (principal); Z12.5 Encounter for screening for malignant neoplasm of prostate; I35.0 Nonrheumatic aortic (valve) stenosis; E78.00 Pure hypercholesterolemia, unspecified; E55.9 Vitamin D deficiency, unspecified; Z91.09 Other allergy status, other than to drugs and biological substances
CPT/HCPCS: 36415; 80053; 80061; 81003; 82306; 84153; 84443; 85025

== ENCOUNTER 2023-12-27 07:16 | Day surgery (SDC) | payer OTHER, SELFPAY ==
[2023-12-25 14:28] VITALS: BMI 24.8
--- NOTE | 2023-12-26 08:30 | P.CONAN_ITS ---
Documented by User: Beverly Bergman NP 12/26/23 08:33 HPI - Anesthesia Eval Consult details Narrative: 58yo M for Colonoscopy s/p AVR 2022. [place] [facility] [place]. Last office visit 12/2022, stable for routine f/u. [facility] Active Problems Active Problems: All Active Problems Right ventricular dysfunction (Acute) S/P AVR (Acute) Severe aortic stenosis (Acute) Past Medical History Medical History Severe aortic stenosis High cholesterol High blood pressure Family History Family History Mother No problems noted. Father No problems noted. Surgical History Surgical History Hx of aortic valve replacement Deviated nasal septum History of appendectomy Social History Social History Are you a primary healthcare applications analyst to a significant other at home: No Do you presently have visiting nurse or other home services: No Alcohol intake: never Patient Tobacco Use Status: Former Tobacco user Tobacco use type: Cigar Years Smoked: 10 +/- off/on only cigars Use of substances other than those prescribed or required for medical reasons: No Have you been hit, kicked, punched, or otherwise hurt by someone within the past year? If so, by whom?: No Advance Directives: No Advance Directives Information Provided: Yes Recently lost weight without trying: No Nutrition Risks: No Nutritional Risk Poor oral hygiene: No Meds Allergies Allergy/AdvReac Type Severity Reaction Status Date / Time No Known Allergies Allergy Verified 12/19/22 13:18 [No Known Allergies*] Home Medications ?Medication ?Instructions ?Recorded ?Confirmed ?Last Taken ?Type cetirizine 10 mg capsule (Zyrtec) 10 mg PO DAILY PRN allergies 08/09/21 12/25/23 Unknown History simvastatin 20 mg tablet 20 mg PO QPM 08/09/21 12/25/23 Unknown History fluticasone propionate 50 1 spray intranasal DAILY 08/23/21 12/25/23 Unknown History mcg/actuation nasal spray,suspension ascorbate calcium (vitamin C) 500 500 mg PO QDAY 12/19/22 12/25/23 Unknown History mg tablet aspirin 81 mg tablet,delayed 81 mg PO DAILY 12/19/22 12/27/23 12/26/23 History release metoprolol succinate 25 mg 75 mg PO DAILY 12/25/23 12/27/23 12/27/23 06:00 History tablet,extended release 24 hr Exam Height,Weight and Vital Signs: Height 5 ft 9 in Weight 76.317 kg Narrative Narrative: ECHO 2022 Conclusions: - Normal left ventricular size and systolic function. There is mildly increased left ventricular wall thickness. The visually estimated ejection fraction is between 55-60%. - Normal right ventricular cavity size. There is borderline right ventricular systolic function. TAPSE is reduced which is common after cardiotomy but RV free wall function is good. - A bioprosthetic aortic valve is present. The prosthetic aortic valve appears to be functioning normally. - There is mild dilatation of the ascending aorta measuring 4.40 cm. Assessment and Plan Assessment Anesthesia Assessment: Chart Reviewed Documented by User: Maile Shipman MD 12/27/23 08:12 [facility] Past Medical History Medical History Severe aortic stenosis High cholesterol High blood pressure Family History Family History Mother No problems noted. Father No problems noted. Family history of problems with anesthesia: No Surgical History Surgical History Hx of aortic valve replacement Deviated nasal septum History of appendectomy History of Problems with Anesthesia: No Social History Social History Are you a primary healthcare applications analyst to a significant other at home: No Do you presently have visiting nurse or other home services: No Alcohol intake: never Patient Tobacco Use Status: Former Tobacco user Tobacco use type: Cigar Years Smoked: 10 +/- off/on only cigars Use of substances other than those prescribed or required for medical reasons: No Have you been hit, kicked, punched, or otherwise hurt by someone within the past year? If so, by whom?: No Advance Directives: No Advance Directives Information Provided: Yes Recently lost weight without trying: No Nutrition Risks: No Nutritional Risk Poor oral hygiene: No Meds Allergies Allergy/AdvReac Type Severity Reaction Status Date / Time No Known Allergies Allergy Verified 12/19/22 13:18 [No Known Allergies*] Home Medications ?Medication ?Instructions ?Recorded ?Confirmed ?Last Taken ?Type cetirizine 10 mg capsule (Zyrtec) 10 mg PO DAILY PRN allergies 08/09/21 12/25/23 Unknown History simvastatin 20 mg tablet 20 mg PO QPM 08/09/21 12/25/23 Unknown History fluticasone propionate 50 1 spray intranasal DAILY 08/23/21 12/25/23 Unknown History mcg/actuation nasal spray,suspension ascorbate calcium (vitamin C) 500 500 mg PO QDAY 12/19/22 12/25/23 Unknown History mg tablet aspirin 81 mg tablet,delayed 81 mg PO DAILY 12/19/22 12/27/23 12/26/23 History release metoprolol succinate 25 mg 75 mg PO DAILY 12/25/23 12/27/23 12/27/23 06:00 History tablet,extended release 24 hr Exam Airway Mallampati Class: II TM Dist: >3cm Neck ROM: Full Heart: rrr Lungs: cta Assessment and Plan Assessment Anesthesia Assessment: Anesthesia Plan Discussed Final Anesthetic Review Family History of Problems with Anesthesia: No History of Problems with Anesthesia: No NPO: Yes ASA Class: III Final Preanesthetic Review: No Changes in Pt Med Stat, Meds/Allgs Chart Reviewed, Consent Obtained/Reviewed and Anes Risks/Benef Reviewed Patient Risk: Intermediate Procedure Risk: Low Anesthetic Plan Anesthetic Plan: MAC: Disposition: Standard PACU
[2023-12-27 07:29] VITALS: BMI 23.7
[2023-12-27 07:47] VITALS: BP 142/85; PULSE 66; RESP 16; TEMP 36; O2SAT 98
[2023-12-27] MEDS: Lactated Ringers 1,000 ML 100 ML IVCONT (07:50)
[2023-12-27 09:43] VITALS: BP 80/49; PULSE 66; RESP 16; TEMP 36.3; O2SAT 94
--- NOTE | 2023-12-27 09:44 | P.BOP_ITS ---
Brief Operative Note Date of Service: 12/27/23 Pre-op diagnosis: Screening Post-op diagnosis: other (Colon polyps) Procedure: Colonoscopy to the cecum and TI with hot snare polypectomy x 3 with placement of 1 Resolution clip on each polypectomy site(no specimen obtained from the ascending colon polyp) Surgeon: Mitchel Okeefe MD Anesthesia: MAC Was an Costumed Character Entertainer used for this Procedure?: No Estimated blood loss (mL): 2.00 Pathology: other (A. Transverse colon polyp B. Distal rectal polyp) Condition: stable Disposition: PACU
[2023-12-27 10:04] VITALS: BP 109/71; PULSE 58; RESP 18; TEMP 36.3; O2SAT 98
--- NOTE | 2023-12-28 13:09 | OP_ITS ---
DATE OF SERVICE: 12/27/2023 SURGEON: Mitchel Okeefe MD INDICATIONS: The patient presents for evaluation of personal history of tubular adenomas of the colon and need for colorectal cancer screening. Full consent was obtained from him for this, including risks of bleeding and perforation. PREOPERATIVE DIAGNOSIS: POSTOPERATIVE DIAGNOSIS: PROCEDURE PERFORMED: Colonoscopy to the cecum and terminal ileum with hot snare polypectomy x3 and placement of a single resolution clip on each polypectomy site. ESTIMATED BLOOD LOSS: COMPLICATIONS: ANESTHESIA: Monitored anesthesia care. ASSISTANTS: SPECIMENS: PREOPERATIVE DIAGNOSES: Colorectal cancer screening and personal history of tubular adenomas of the colon. POSTOPERATIVE DIAGNOSES: Colorectal cancer screening and personal history of tubular adenomas of the colon, colon polyps, diverticulosis, and internal hemorrhoids. DESCRIPTION OF PROCEDURE: The patient was placed in the left lateral decubitus position. The digital rectal exam revealed no abnormalities. The Snapflow video pediatric colonoscope was entered into the rectum and advanced easily to the cecum. Once in the cecum, I did identify normal-appearing cecal pouch with appendiceal orifice and a normal-appearing ileocecal valve. The terminal ileum was cannulated and appeared normal. The scope was withdrawn back in the colon. The entire cecum and ileocecal valve appeared normal. The scope was slowly withdrawn assessing all mucosal surfaces carefully. Preparation was excellent. In the ascending colon was a flat, approximately 6 mm grossly adenomatous polyp, which was removed by hot snare polypectomy. However, the cautery basically obliterated all the tissue and there was no specimen. There was no sign of any bleeding or residual polyp. A single Resolution clip was applied to the polypectomy site with good deployment and good hemostasis. At 60 cm, and in the distal rectum were flat, approximately 6 mm polyps, which were both removed by hot snare polypectomy and both recovered by suction. Both polypectomy sites appeared clean, without any sign of residual polyp nor bleeding. A single Resolution clip was applied to each polypectomy site with good deployment and good hemostasis. I did not visualize any other polyps, colitis, nor angiodysplasia. There was a mild amount of sigmoid diverticulosis. In the rectum, scope was retroflexed visualizing internal hemorrhoids. The scope was straightened and withdrawn from the patient. He tolerated the procedure well and was returned to recovery area in stable condition. IMPRESSION: 1. Colon polyps. 2. Diverticulosis. 3. Internal hemorrhoids. PLAN: The results of biopsy will be checked. I would recommend a repeat colonoscopy in 5 years for further screening. He was advised to resume his aspirin in 72 hours. MD NUVIA Wang/ANNE / [phone]
== END 2023-12-27 10:17 | disposition home or self-care (01) ==
PROVIDERS: PCP Internal Medicine; Visit Provider Internal Medicine
PROC: 0DJD8ZZ Inspection of Lower Intestinal Tract, Via Natural or Artificial Opening Endoscopic (ICD-10-PCS; CPT 45378; principal; 2023-12-27 08:30)
DX: Z12.11 Encounter for screening for malignant neoplasm of colon (principal); Z86.0101 Personal history of adenomatous and serrated colon polyps; K63.5 Polyp of colon; K62.1 Rectal polyp; K57.30 Diverticulosis of large intestine without perforation or abscess without bleeding; K64.8 Other hemorrhoids; I10 Essential (primary) hypertension; E78.5 Hyperlipidemia, unspecified; Z95.2 Presence of prosthetic heart valve; Z79.82 Long term (current) use of aspirin; Z79.899 Other long term (current) drug therapy
CPT/HCPCS: 45385; 88305; J2003; J2704

== ENCOUNTER 2024-01-08 08:20 | Outpatient (REF) | payer OTHER, SELFPAY ==
[2024-01-08 09:31] LABS: Estimated Average Glucose 134 mg/dL; Hemoglobin A1C 174.0301 umol/L; Hemoglobin A1c % 6.3 % (<6.0); Total Hemoglobin (HGBA1C) 3833.2233 umol/L
[2024-01-08 10:39] LABS: Anion Gap 12 (12-20)
[2024-01-08 10:44] LABS: Albumin Level 4.5 g/dL (3.5-5.0); Alkaline Phosphatase 83 U/L (39-117); Bilirubin Total 0.7 mg/dL (0.0-1.0); Blood Urea Nitrogen 23 mg/dL (9-16); Calcium 9.7 mg/dL (8.4-10.2); Carbon Dioxide 28 mmol/L (22-29); Chloride 105 mmol/L (96-108); Cholesterol 160 mg/dL (<200); Estimated Glomerular Filt Rate > 60; Glucose Fasting 147 mg/dL (60-99); HDL Cholesterol 38 mg/dL (>40); LDL Cholesterol Calculated 93 mg/dL (<100); Potassium 4.4 mmol/L (3.3-5.1); Sodium 141 mmol/L (135-145); Total Protein 7.1 g/dL (6.5-8.0); Triglycerides 145 mg/dL (<150)
[2024-01-08 12:12] LABS: Alanine Aminotransferase 40 U/L (0-40); Aspartate Amino Transferase 32 U/L (5-37)
== END 2024-01-08 08:21 | disposition home or self-care (01) ==
LOC: HO.LAB 08:20
PROVIDERS: PCP Internal Medicine; Visit Provider Internal Medicine
DX: E78.00 Pure hypercholesterolemia, unspecified (principal); E74.39 Other disorders of intestinal carbohydrate absorption; Z13.1 Encounter for screening for diabetes mellitus
CPT/HCPCS: 36415; 80053; 80061; 83036

== ENCOUNTER 2024-02-26 13:33 | Outpatient (AMB) | payer OTHER, SELFPAY ==
[2024-02-26 13:44] VITALS: BP 110/80; PULSE 77; BMI 25.5
--- NOTE | 2024-02-26 13:44 | A.OFFVIS_ITS ---
Vital Signs 02/26/24 13:44 Height 5 ft 9 in Weight 172 lb 6.424 oz BMI 25.5 BP 110/80 Blood Pressure Location Lt brachial Position Sitting Pulse 77 Pulse Source Monitor Intake Visit Reasons: r/s 12/26- 1 yr f/up Intake Note: 1 yr f/up Industrial Accountant Required: No Accompanied by: Self / Same As Patient Allergies No Known Allergies [No Known Allergies*] Allergy (Verified 12/19/22 13:18) Medication List - Last Reconciled 02/26/24 by George Hinds MD ascorbate calcium (vitamin C) 500 mg PO QDAY aspirin 81 mg PO DAILY cetirizine (Zyrtec) 10 mg PO DAILY PRN fluticasone propionate 50 mcg/actuation 1 spray intranasal DAILY metoprolol succinate ER 75 mg PO DAILY simvastatin 20 mg PO QPM HPI Comments Details: 58-year-old gentleman with severe aortic valve stenosis who is status post aortic valve replacement with a 25 mm Inspiris valve on 03/24/[address] Hakeem Cortes. He is doing well after surgery. He has no chest discomfort shortness of breath. No dizziness or syncope. His echocardiography post surgery showed moderate severe right ventricular dysfunction. He has not had any symptoms. He underwent CTA to rule out pulmonary embolism. He returns for follow-up and continues to be active without any exertional symptoms. He was advised to stop amiodarone after 1 month but still has amiodarone as an active drug on his list. He is unclear whether he is taking it or not. I have explained it to him and his father that they need to check the medication bottles and call us whether he is taking it or not. In any case he should not be on amiodarone anymore. He is asking about dental workup and whether he needs antibiotics. He will need antibiotic prophylaxis before any dental workup in the future. 12/19/2022-he returns for follow-up. He had repeat echocardiography in August 2022. LV function is normal 55-60%. Normal right ventricular cavity size with borderline RV systolic function. Bioprosthetic aortic valve which appears to be functioning normally. He is working and is active at his work. No chest discomfort shortness of breath. No signs/symptoms of heart failure. 02/26/2024: He is here for follow-up. He has been doing well. He is active and has no exertional symptoms. Blood pressure well controlled. [facility] Medical History Severe aortic stenosis High cholesterol High blood pressure Surgical History Hx of aortic valve replacement Deviated nasal septum History of appendectomy Family History Mother No problems noted. Father No problems noted. Social History Are you a primary customer care consultant to a significant other at home: No Do you presently have visiting nurse or other home services: No Alcohol intake: never Patient Tobacco Use Status: Former Tobacco user Tobacco use type: Cigar Years Smoked: 10 +/- off/on only cigars Review of Systems Const Denies chills, Denies fatigue, Denies fever(s), Denies frequent falls, Denies weakness, Denies weight gain and Denies weight loss ENT Denies dizziness Card Denies chest pain, Denies leg edema, Denies lightheadedness, Denies palpitations, Denies dyspnea and Denies dyspnea on exertion Resp Denies cough, Denies dyspnea and Denies dyspnea on exertion GI Denies hematochezia Musc Denies abnormal gait, Denies muscle weakness, Denies numbness, Denies radiating pain into limb and Denies tingling Neuro Denies abnormal gait, Denies dizziness, Denies frequent falls, Denies numbness, Denies tingling and Denies weakness Endo Denies fatigue and Denies palpitations Physical Exam Vital Signs: Last Vital Signs Pulse 77 02/26/24 13:44 BP 110/80 02/26/24 13:44 BMI result Body Mass Index 25.5 GENERAL APPEARANCE: in no acute distress, pleasant. NECK: no carotid bruit, no jugular venous distention. SKIN: no suspicious lesions, warm and dry. HEART: no murmurs, regular rate and rhythm. LUNGS: clear to auscultation bilaterally. ABDOMEN: soft, nontender. EXTREMITIES: no edema. PERIPHERAL PULSES: equal. NEUROLOGIC: No gross deficits, AAO X 3 Office Procedures EKG Details: Sinus rhythm 77 beats per minute, rightward axis, nonspecific T-wave changes, QTC 396 milliseconds. [id number], Complete Assessment & Plan Assessment & Plan (1) S/P AVR: Code(s): Z95.2 - Presence of prosthetic heart valve Category: Surgical (2) Right ventricular dysfunction: Code(s): I51.9 - Heart disease, unspecified Category: Medical Plan Pleasant 58-year-old gentleman who is here for follow-up. He is status post aortic valve replacement for severe aortic valve stenosis. Echocardiography post surgery has shown RV dysfunction. Quite commonly TAPSE values are low after cardiotomy and may overestimate the degree of RV dysfunction. In my opinion is RV function is borderline reduced. He continues to do well and has no signs/symptoms of right ventricular dysfunction. Blood pressure is well controlled. He will follow up with us in 1 year. Thank you for allowing me to participate in the care of your patient. Please feel free to contact me if you have any questions. Coding Level of Care Code Est Pt Level 4 (18484) Diagnoses S/P AVR Z95.2 Right ventricular dysfunction I51.9 CPT Codes EKG - CPT: 41856-[id number], Complete ([id number])
--- OUTSIDE RECORDS SUMMARY | 2024-02-28 15:47 | XMS_ITS ---
Author Organization [facility] Address [address] [place] [address] Care Team Providers Care Land Management Supervisor Name Role Phone Mitchel Esquivel DO Primary Care Provider Unavail able Mitchel Okeefe Unavailable [phone] REASON FOR VISIT screening colonoscopy, HX of Adenomatous polyp PROBLEMS Problem Type ICD Code Onset Dates Problem Status W/U Status Risk SNOMED Code Notes Problem Diverticulosis of large intestine without perforation or abscess without bleeding (K57.30) Active confirmed Diverticul ar disease of colon ([id number]) Encounters Encounter Location Date Provider Diagnosis [facility] Outpatient [address] [place] [id number] 12/27/2023 Mitchel Okeefe Colon cancer scree chela Z12.11 ; Colon polyps K63.5 ; Rectal polyp K62.1 ; Diverticulosis of large intestine without perforation or abscess without bleeding K57.30 and Other hemorrhoids K64.8 ASSESSMENTS Encounter Date Diagnosis Assessment Notes Treatment Notes Treatment Clinical Notes 12/27/2023 Colon cancer screening (ICD-10 - Z12.11) 12/27/2023 Colon polyps (ICD-10 - K63.5) 12/27/2023 Rectal polyp (ICD-10 - K62.1) 12/27/2023 Diverticulosis of large intestine without perforation or abscess without bleeding (ICD-10 - K57.30) 12/27/2023 Other hemorrhoids (ICD-10 - K64.8) PLAN OF TREATMENT No Information
--- OUTSIDE RECORDS SUMMARY | 2024-02-28 15:47 | XMS_ITS ---
Author Organization [facility] Address [address] [place] [address] Care Team Providers Care Accounting Coordinator Name Role Phone Mitchel Esquivel DO Primary Care Provider Unavail able Mitchel Okeefe Unavailable [phone] ALLERGIES No Known Allergies REASON FOR VISIT Patient presents today for a SCREENING COLON MEDICATIONS Medication SIG (Take, Route, Frequency, Duration) Notes Start Date End Date Status Aspirin 81 81 MG 1 tablet Orally Once a day Active Fluticasone Propionate 50 MCG/ACT Nasal for 90 Active Simvastatin 20 MG TAKE 1 TABLET BY FABRICIO TH ONCE EVERY EVENING Oral for 90 Active Lisinopril 5 MG TAKE 1 TABLET BY FABRICIO TH EVERY DAY Oral for 90 Active Metoprolol Succinate ER 50 MG TAKE 1 TABLET BY MOUTH ONCE DAILY Oral for 90 Active SOCIAL HISTORY Tobacco Use: Social History Observation Description Date Details (start date - stop date) Never Smoker NA - NA Sex Assigned At : Social History Observation Description Sex Assigned At Unknown Tobacco Use/Smoking Question Answer Notes Patient is a nonsmoker Alcohol Screen Question Answer Notes Did you have a drink contain ing alcohol in the past year? Yes How often did you have a dri nk containing alcohol in the past year? Never (0 point) How many drinks did you have on a typical day when you were drinking in the past year? 1 or 2 drinks (0 point) How often did you have 6 or more drinks on one occasion in the past year? Never (0 point) Points 0 Interpretation Negative PROBLEMS Problem Type ICD Code Onset Dates Problem Status W/U Status Risk SNOMED Code Notes Problem History of adenomatous polyp of colon (Z86.010) Active confirmed History of adenomatous polyp of colon (938029258) Problem Colon cancer screening (Z12.11) Active confirmed Colon cancer screening (582153816) Problem Preprocedural examination (Z01.818) Active confirmed Preprocedural examination (692005949374438 ) VITAL SIGNS BMI 24.84 kg/m2 09/06/2023 Blood pressure systolic 000 mm Hg 09/06/19 24 Blood pressure diastolic 00 mm Hg 024 Height 69 in 09/06/2023 Temperature 98.2 degrees Fahrenheit 09/06/19 24 Weight 168 lb 4 oz lbs 09/06/2023 Encounters Encounter Location Date Provider Diagnosis [facility] [address] [place] [address] 09/06/2023 Mitchel Okeefe History of adenomato us polyp of colon Z86.010 ; Preprocedural examination Z01.818 and Colon cancer screening Z12.11 ASSESSMENTS Encounter Date Diagnosis Assessment Notes Treatment Notes Treatment Clinical Notes 09/06/2023 History of adenomatous polyp of colon (ICD-10 - Z86.010) Do not take aspirin on the morning of the colonoscopy We will ask Dr. Hinds if you need antibiotics for the colonoscopy in regard to the heart valve 09/06/2023 Preprocedural examination (ICD-10 - Z01.818) 09/06/2023 Colon cancer screening (ICD-10 - Z12.11) PLAN OF TREATMENT Treatment Notes Assessment Notes History of adenomatous polyp of colon Do not take aspirin on the morning of the colonoscopy We will ask Dr. Hinds if you need antibiotics for the colonoscopy in regard to the heart valve Future Test Test Name Order Date COLONOSCOPY 09/06/2023 Next Appt Details Follow Up: prn, Reason: Progress Notes * Examination Category Sub-Category Detail Notes General Examination GENERAL APPEARANCE: pleasant , well nourished, well developed, in no acute distress HEAD: EYES: sclera non-icteric EARS: NOSE: THROAT: NECK/THYROID: no cervical lymphade nopathy, neck supple HEART: S1, S2 normal CHEST: LUNGS: clear to auscultatio n bilaterally ABDOMEN: normal bowel sounds, no guarding or rigidity, no guarding or rigidity, no masses palpable, soft, nontender, nondistended NEUROLOGIC: alert and oriented SKIN: nonjaundiced, no spi kimberly angiomata EXTREMITIES: no edema PERIPHERAL PULSES: BACK: BREASTS: MUSCULOSKELETAL: MALE GENITOURINARY: LYMPH NODES: RECTAL EXAM: FEMALE GENITOURINARY: ORAL CAVITY: mucosa moist
--- OUTSIDE RECORDS SUMMARY | 2024-02-28 15:47 | XMS_ITS | Patient Health Record ---
Author Organization [facility] Address [address] [place] [address] Care Team Providers Care Welfare Administrator Name Role Phone Mitchel Esquivel DO Primary Care Provider Unavail able OkeefeMitchel Unavailable [phone] ALLERGIES No Known Allergies RESULTS Component Value Reference Range Notes Pathology (Not yet reviewed by provider) Interpretation: Performing Lab:[facility], [address] [place] [phone] Notes/Report: REASON FOR REFERRAL No Information MEDICATIONS Medication SIG (Take, Route, Frequency, Duration) [...] MOUTH ONCE DAILY Oral for 90 Active IMMUNIZATIONS Vaccine Route Administration Date Status Comme nts Influenza Unknown 02/17/2018 Administered Influenza Unknown 01/31/2023 Administered SOCIAL HISTORY Tobacco Use: Social History Observation [...] W/U Status Risk SNOMED Code Notes Problem Heme + stool (R19.5) Active confirmed [id number] Problem History of adenomatous polyp of colon (Z86.010) Active confirmed History o f adenomatous polyp of colon (671683884) Problem Colon cancer screening (Z12.11) Active confirmed Colon can cer screening (358741849) Problem Preprocedural examination (Z01.818) Active confirmed Preprocedural examination (290163382697919 ) Problem Diverticulosis of large intestine without perforation or abscess without bleeding (K57.30) Active confirmed Diverticul ar disease of colon (456601807) VITAL SIGNS Temperature 98.2 degrees Fahrenheit 09/06/2023 Blood pressure diastolic 00 mm Hg 09/06/2023 Height 69 in 09/06/2023 Blood pressure systolic 000 mm Hg 09/06/2023 Weight 168 lb 4 oz lbs 09/06/2023 BMI 24.84 kg/m2 09/06/2023 Encounters Encounter Location Date Provider Diagnosis [facility] [address] [place] [id number] 12/27/2023 Mitchel Okeefe Colon cancer screeni ng Z12.11 ; Colon polyps K63.5 ; Rectal polyp K62.1 ; Diverticulosis of large intestine without perforation or abscess without bleeding K57.30 and Other hemorrhoids K64.8 [facility] [address] [place] [phone] 09/06/2023 Mitchel Okeefe History of adenomato us polyp of colon Z86.010 ; Preprocedural examination Z01.818 and Colon cancer screening Z12.11 [facility] [address] [place] [phone] 09/07/2023 Mitchel Okeefe ASSESSMENTS Encounter Date Diagnosis Assessment Notes Treatment Notes Treatment Clinical Notes 12/27/2023 Colon cancer screening (ICD-10 - Z12.11) 12/27/2023 Colon polyps (ICD-10 - K63.5) 09/06/2023 History of adenomatous polyp of colon (ICD-10 - Z86.010) Do not take aspirin on the morning of the colonoscopy We will ask Dr. Hinds if you need antibiotics for the colonoscopy in regard to the heart valve 09/06/2023 Preprocedural examination (ICD-10 - Z01.818) 12/27/2023 Rectal polyp (ICD-10 - K62.1) 09/06/2023 Colon cancer screening (ICD-10 - Z12.11) 12/27/2023 Diverticulosis of large intestine without perforation or abscess without bleeding (ICD-10 - K57.30) 12/27/2023 Other hemorrhoids (ICD-10 - K64.8) PLAN OF TREATMENT Pending Test Test Name Order Date Pathology 12/27/2023 Future Test Test Name Order Date COLONOSCOPY 06/05/2018 COLONOSCOPY 09/06/2023 Insurance Providers Payer Name Payer Address Payer Phone Subscriber Number Group Number Insured Name Patient Relationship to Insured Coverage Start Date Coverage End Date [facility] [address] [facility] [place] [phone] [id number] JIL ROJAS Self - patient is the insured MEDICAL (GENERAL) HISTORY Medical History History ICD Code Hypertension Denies SC,DM,CVA,Lung disease,renal dise ase Hyperlipidemia Colonoscopy 08/2018 with removal of 2 tub ular adenomas Sees Dr. Hinds for Cardiology Surgical History Surgery Date(Month/Year) Appendectomy 1977 Nasal septum Aortic valve replacement 03/2022
--- OUTSIDE RECORDS SUMMARY | 2024-02-28 15:47 | XMS_ITS ---
Author Organization [facility] Address [address] [place] [address] Care Team Providers Care Direct Sales Representative Name Role Phone Mitchel Esquivel DO Primary Care Provider Unavail able Mitchel Okeefe Unavailable [phone] Encounters Encounter Location Date Provider Diagnosis [facility] [address] [place] [address] 09/07/2023 Mitchel Okeefe PLAN OF TREATMENT No Information
== END 2024-02-26 14:14 | disposition home or self-care (01) ==
PROVIDERS: PCP Internal Medicine; Visit Provider Internal Medicine Cardiovascular Disease
DX: Z95.2 Presence of prosthetic heart valve (principal); I51.9 Heart disease, unspecified
CPT/HCPCS: 93010; 99214

== ENCOUNTER → 2024-02-26 13:33 | Outpatient (BNVA) | payer OTHER, SELFPAY | PROVIDERS: PCP Internal Medicine; Visit Provider Internal Medicine Cardiovascular Disease | DX: I51.9 Heart disease, unspecified (principal); Z95.2 Presence of prosthetic heart valve | CPT/HCPCS: 93005 ==

== ENCOUNTER 2024-07-26 10:18 | Outpatient (AMB) | payer OTHER, SELFPAY ==
--- NOTE | 2024-07-26 10:34 | A.OFFPC_ITS ---
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: No Accompanied by: Self / Same As Patient Allergies No Known Allergies [No Known Allergies*] Allergy (Verified 07/26/24 11:10) Medication List - Last Reconciled 07/26/24 by Kecia Escobar PA-C ascorbate calcium (vitamin C) 500 mg PO QDAY aspirin 81 mg PO DAILY cetirizine (Zyrtec) 10 mg PO DAILY PRN cholecalciferol (vitamin D3) 50 mcg PO DAILY fluticasone propionate 50 mcg/actuation 1 spray intranasal DAILY metoprolol succinate ER 75 mg PO DAILY simvastatin 20 mg PO QPM Tobacco use date assessed: 07/26/24 Dental Screening Dental Screen Date: 07/26/24 Did you have a dental visit in the last 12 months?: Yes Did you have a dental problem in the last 6 months where you did not have access to dental care?: No Was dental information given to patient?: Patient has dentist HPI 6 month follow up HPI Details The patient is a 59-year-old male presenting for a six-month follow-up. He has a known history of aortic stenosis and underwent heart valve replacement surgery, managed currently with metoprolol. He also has essential hypertension treated with aspirin and notes that his blood pressure readings are favorable. He was identified as pre-diabetic last year with an A1c of 6.3; however, recent readings show improvement with an A1c of 5.9. He is actively trying to maintain a proper diet. His hyperlipidemia is managed with simvastatin, and although his HDL was slightly low previously, other lipid levels were within normal limits. Additionally, he suffers from allergic rhinitis for which he uses Flonase. There are no current complaints related to cardiovascular or gastrointestinal symptoms, nor indications of depressive or anxiety disorders. Lab tests conducted previously include CBC, electrolyte panel, liver function, and PSA screening, which were all normal at that time. Social History - Patient is a non-drinker and does not utilize tobacco aside from occasional cigar smoking. - The patient has reported actively work ing on maintaining a healthier diet. [facility] Medical History (Updated 07/26/24 @ 13:13 by Kecia Escobar PA-C) Overweight (BMI 25.0-29.9) Allergic rhinitis Pre-diabetes Essential hypertension Establishing care with new doctor, encounter for Severe aortic stenosis High cholesterol High blood pressure Surgical History Hx of aortic valve replacement Deviated nasal septum History of appendectomy Family History Mother No problems noted. Father No problems noted. Social History Housing: House Are you a primary rn complex care to a significant other at home: No Do you presently have visiting nurse or other home services: No Alcohol intake: current Alcohol intake frequency: does not drink Patient Tobacco Use Status: Current someday Tobacco user Tobacco use type: Cigar Years Smoked: 10 +/- off/on only cigars service: No Current occupational status: employed Cognitive needs: No Hearing needs: No Vision needs: No Questionnaire PHQ-9 Over the last 2 weeks, how often have you been bothered by any of the following problems? 1. Little interest or pleasure in doing things: not at all 2. Feeling down, depressed, or hopeless: not at all 3. Trouble falling or staying asleep, or sleeping too much: not at all 4. Feeling tired or having little energy: not at all 5. Poor appetite or overeating: not at all 6. Feeling bad about yourself - or that you are a failure or have let yourself or your family down: not at all 7. Trouble concentrating on things, such as reading the newspaper or watching television: not at all 8. Moving or speaking so slowly that other people could have noticed. Or the opposite - being so fidgety or restless that you have been moving around a lot more than usual: not at all 9. Thoughts that you would be better off or of hurting yourself in some way: not at all Total score: 0 Depression Screening Interpretation: Negative Depression Screening Done: Yes 78550 - PHQ-9 Billing: Yes Source: Developed by Drs. Mitchel Ledbetter, Felisha Wright, Paul Ulrich and colleagues, with an educational rigoberto from [employer]. Thrive Questionnaire Date Thrive assessed: 07/26/24 I am a: Patient What is your living situation today?: I have a steady place to live Within the past 12 months, did the food you bought not last and you didn't have the money to get more?: Never true Within the past 12 months, did you worry whether your food would run out before you got money to buy more?: Never true Do you have trouble paying for medicines?: No Do you have trouble getting transportation to medical appointments?: No Do you have trouble paying your heating and electricity bill?: No Do you have trouble taking care of your child, family member or friend?: No Do you have trouble with day-to-day activities such as bathing, preparing meals, shopping, managing finances, etc.?: No Are you currently unemployed and looking for a job?: No Are you interested in more education?: No Please select the resources that you would like help with: None THRIVE Score: 0 AUDIT C Alcohol Use Questionnaire (AUDIT-C) 1. How often do you have a drink containing alcohol?: Never 3. How often do you have six or more drinks on one occasion?: Never Total Score: 0 Score Reviewed/Action Taken: No SHEMAR-7 AMB Questionnaire SHEMAR-7 Date SHEMAR - 7 assessed: 07/26/24 Feeling nervous, anxious, or on edge: 0 = Not at all Not being able to stop or control worryin = Not at all Worrying too much about different things: 0 = Not at all Trouble relaxin = Not at all Being so restless that it is hard to sit still: 0 = Not at all Becoming easily annoyed or irritable: 0 = Not at all Feeling afraid as if something awful might happen: 0 = Not at all Total SHEMAR-7 score (0-4 normal; 5-9 mild; 10-14 moderate; 15-21 severe): 0 Source: Developed by Drs. Mitchel Ledbetter, Felisha Wright, Paul Ulrich and colleagues, with an educational rigoberto from [employer]. SHEMAR-7 Assessment Billing SHEMAR-7 Assessment Tool: SHEMAR-7 Assessment 60760 Review of Systems Const Details: - Cardiovascular: Denies chest pain or dizziness. - Gastrointestinal: Denies constipation, bloody stools, or abdominal pain. - Respiratory: Denies issues. - Musculoskeletal: Denies leg swelling. - Dermatological: Denies rashes. - Psychological: Denies depression or anxiety. Physical exam (Primary Care) Vital Signs: Last Vital Signs Temp 97.8 F 07/26/24 10:35 Pulse 66 07/26/24 10:35 Resp 16 07/26/24 10:35 BP 119/67 07/26/24 10:35 Pulse Ox 97 07/26/24 10:35 Oxygen Delivery Method Room Air 07/26/24 10:35 Care Plan Goal for BP management: <130/90 at Goal BMI result Body Mass Index 25.7 BMI Assessment/Plan discussion: High BMI High, discussed plan: lifestyle, weight reduction, dietary, physical activity and alcohol moderation Tobacco/Smoking Status: Tobacco use Status Tobacco use date assessed 07/26/24 07/26/24 10:38 Patient Tobacco Use Status Current someday Tobacco 07/26/24 10:44 Tobacco use type Cigar 07/26/24 10:44 PHQ-9: PHQ-9 Score PHQ-9: Total score 0 07/26/24 11:12 Depression Screening Interpretation: Negative Thrive Assessment: Date of Thrive Assessment Date Thrive assessed 07/26/24 07/26/24 10:38 Const Other: Appearance: Alert. Oriented X3. No acute distress. Head: Normal external exam. Normocephalic. Atraumatic. Eyes: Pupils are equal, round, and reactive to light. Extraocular movements intact. Conjunctiva and sclera normal. Eyelids normal. Ears: External auditory canal normal. Tympanic membranes normal. Throat: Pharynx normal. Uvula midline. Moist mucous membranes. Neck: Normal inspection. Neck supple. Full range of motion. No adenopathy. Thyroid Normal. No meningeal signs. No neck mass noted. Cardiovascular: Normal heart rate and rhythm. Heart sound normal. No murmurs noted. Pulses normal throughout. Respiratory: No respiratory distress. Painless inspiration. Breath sounds normal. No wheezes/rales/rhonchi noted. Chest nontender. No accessory muscle usage noted or decreased air movement noted. Abdomen: Soft and nontender. Bowel sounds normal in all 4 quadrants. No distention noted. No organomegaly noted. No visible injury noted. Back: No costovertebral angle tenderness. Full range of motion noted. Skin: Skin warm and dry. Normal skin color. Normal skin turgor. No rashes/lesions/lacerations noted. Extremities: No lower extremity edema. Extremities exhibit normal range of motion. Extremities nontender. Neuro: Oriented X 3. No motor deficit. No sensory deficit. Reflexes normal. Results AMB Hemoglobin A1c AMB Hemoglobin A1c 5.9 % Last Edit by ARACELIS Clark on 07/26/24 11:14 Results Reviewed Results Reviewed: Laboratory Last Values Hgb A1c (Clinic) 5.9 % (4.0-6.0) 07/26/24 11:12 - Labs: Previous hemoglobin A1c was 6.3, current A1c is 5.9. HDL was 38. - Tests: CBC, PSA, electrolytes, kidney function, thyroid function, and vitamin D levels all previously normal. Coding Level of Care Code New Pt Level 4 (32924) Complex EM visit Add On G2211 Diagnoses Establishing care with new doctor, encounter for Z76.89 Severe aortic stenosis I35.0 Essential hypertension I10 Pre-diabetes R73.03 Allergic rhinitis J30.9 Overweight (BMI 25.0-29.9) E66.3 Additional Codes SHEMAR-7 Assessment Billing - SHEMAR-7 Assessment Tool: SHEMAR-7 Assessment 76218 ([id number]) PHQ-9 - 36648 - PHQ-9 Billing: Yes ([id number]) Assessment & Plan Assessment & Plan (1) Establishing care with new doctor, encounter for: Code(s): Z76.89 - Persons encountering health services in other specified circumstances Category: Medical (2) Severe aortic stenosis: Comment: with valve replacement 2022-follows w/[facility] Code(s): I35.0 - Nonrheumatic aortic (valve) stenosis Category: Medical Plan: Patient is stable post-heart valve replacement, using metoprolol for rate control. No new symptoms detected at this visit. Condition is chronic and stable continue to monitor. (3) Essential hypertension: Code(s): I10 - Essential (primary) hypertension Category: Medical Plan: BP is well controlled with existing medication. Metoprolol extended release 75 mg daily. No changes proposed. Condition is chronic and stable continue to monitor. (4) Pre-diabetes: Code(s): R73.03 - Prediabetes Category: Medical Plan: Diet improvements confirmed, A1c improved to 5.9. Continue regular examinations. Condition is chronic and improving/ stable will continue to monitor. (5) Allergic rhinitis: Code(s): J30.9 - Allergic rhinitis, unspecified Category: Medical Plan: Flonase continues to manage symptoms well, no adjustments necessary. Condition is chronic and stable continue to monitor. (6) Overweight (BMI 25.0-29.9): Code(s): E66.3 - Overweight Category: Medical Plan: Patient to improve his diet and exercise regimen. Condition is chronic and stable will continue to monitor. Plan Plan Patient was informed and verbally consented to the use of an ambient scribe for clinic note documentation during this visit. 1. Aortic Stenosis Patient is stable post-heart valve replacement, using metoprolol for rate control. No new symptoms detected at this visit. 2. Essential Hypertension BP is well controlled with existing medication. No changes proposed. 3. Pre-Diabetes Diet improvements confirmed, A1c improved to 5.9. Continue regular examinations. 4. Hyperlipidemia Simvastatin remains effective; maintain current dosage as lipid profile mostly controlled. 5. Allergic Rhinitis Flonase continues to manage symptoms well, no adjustments necessary. During this visit, we reviewed the patient's chronic conditions, including aortic stenosis, essential hypertension, pre-diabetes, hyperlipidemia, and allergic rhinitis. I explained that the aortic stenosis is being successfully managed post-valve replacement with metoprolol, ensuring the heart rate remains stable. For essential hypertension, the patient's blood pressure is well controlled. We discussed the improvement in his hemoglobin A1c from a pre- diabetic state, emphasizing the importance of dietary adjustments in managing this risk. His hyperlipidemia is controlled with simvastatin, although he needs to address slightly low HDL levels through lifestyle interventions. Lastly, the patient is to continue Flonase for allergic rhinitis management. Routine follow- up was advised, and he was reminded to continue with healthy lifestyle choices to maintain his improved health status. Orders: Orders C Reactive Protein Today Z00.00 - Encounter for general adult medical examination without abnormal findings Liver Panel Today Z00.00 - Encounter for general adult medical examination without abnormal findings Complete Blood Count Auto Diff Today Z00.00 - Encounter for general adult medical examination without abnormal findings Comprehensive [place]. Panel Fast Today Z00.00 - Encounter for general adult medical examination without abnormal findings Erythrocyte Sedimentation Rate Today Z00.00 - Encounter for general adult medical examination without abnormal findings Lipid Panel Today Z00.00 - Encounter for general adult medical examination without abnormal findings Vitamin D 25-OH Total Today Z00.00 - Encounter for general adult medical examination without abnormal findings TSH reflex Free T4 Today Z00.00 - Encounter for general adult medical examination without abnormal findings PSA,Total (Free>4and<10) Today Z00.00 - Encounter for general adult medical examination without abnormal findings Vitamin B12 and Folate Today Z00.00 - Encounter for general adult medical examination without abnormal findings Magnesium Today Z00.00 - Encounter for general adult medical examination without abnormal findings AMB Hemoglobin A1c Today Z13.9 - Encounter for screening, unspecified Patient Instructions: - Continue taking all current medications as prescribed. - Maintain a healthy diet to help control blood glucose levels. - Schedule a follow-up for routine examination and blood work by the end of the month, ensuring fasting prior to tests. - Attend the one-year follow-up appointment in February 2025. - Inform the office if new symptoms appear or if there are changes in your condition. - Utilize patient portal for health records and communication with our office.
[2024-07-26 10:35] VITALS: BP 119/67; PULSE 66; RESP 16; TEMP 36.6; O2SAT 97; BMI 25.7
== END 2024-07-26 11:18 | disposition home or self-care (01) ==
LOC: HO.HMCSH 10:18
PROVIDERS: PCP Internal Medicine; Visit Provider Physician Assistant Medical
DX: Z76.89 Persons encountering health services in other specified circumstances (principal); I35.0 Nonrheumatic aortic (valve) stenosis; I10 Essential (primary) hypertension; R73.03 Prediabetes; J30.9 Allergic rhinitis, unspecified; E66.3 Overweight; Z13.9 Encounter for screening, unspecified

== ENCOUNTER → 2024-07-26 10:18 | Outpatient (BNVA) | payer OTHER, SELFPAY | PROVIDERS: PCP Internal Medicine; Visit Provider Physician Assistant Medical | DX: Z76.89 Persons encountering health services in other specified circumstances (principal); I35.0 Nonrheumatic aortic (valve) stenosis; I10 Essential (primary) hypertension; R73.03 Prediabetes; J30.9 Allergic rhinitis, unspecified; E66.3 Overweight; Z68.25 Body mass index [BMI] 25.0-25.9, adult | CPT/HCPCS: 83036; 96127 ==

== ENCOUNTER 2024-08-02 07:20 | Outpatient (REF) | payer OTHER, SELFPAY ==
[2024-08-02 07:33] LABS: MANUAL DIFF FLAG NO
[2024-08-02 07:48] LABS: Basophils Absolute Auto 0.1 X10*3/uL (0.0-0.2); Basophils Percent Auto 1.2 % (0-2); Eosinophils Absolute Auto 0.2 X10*3/uL (0.0-0.4); Eosinophils Percent Auto 2.4 % (0-4); Hematocrit 49.3 % (42.0-52.0); Hemoglobin 16.7 g/dl (14.0-18.0); Imm Gran Abs Auto 0.03 X10*3/uL (0.00-0.03); Imm Gran Pct Auto 0.4 % (0.0-0.4); Lymphocytes Absolute Auto 1.7 X10*3/uL (1.2-4.9); Lymphocytes Percent Auto 22.3 % (20-40); Mean Corpuscular HGB Conc 33.9 g/dl (31.0-36.0); Mean Corpuscular Hemoglobin 29.1 pg (27.0-33.0); Mean Corpuscular Volume 85.9 fL (80.0-98.0); Monocytes Absolute Auto 0.5 X10*3/uL (0.1-1.2); Monocytes Percent Auto 6.6 % (2-11); Neutrophils Absolute Auto 5.1 x10*3/uL (2.0-8.3); Neutrophils Percent Auto 67.1 % (45-73); Platelet Count 175 X10*3/uL (160-400); Red Blood Count 5.74 X10*6/uL (4.60-5.80); Red Cell Distribution Width 12.4 % (11.0-16.0); White Blood Count 7.6 X10*3/uL (4.8-10.8)
[2024-08-02 08:22] LABS: Alanine Aminotransferase 45 U/L (0-40); Albumin Level 4.6 g/dL (3.5-5.0); Alkaline Phosphatase 85 U/L (39-117); Anion Gap 13 (12-20); Aspartate Amino Transferase 30 U/L (5-37); Bilirubin Direct 0.2 mg/dL (0.0-0.5); Bilirubin Total 0.7 mg/dL (0.0-1.0); Blood Urea Nitrogen 23 mg/dL (9-16); C Reactive Protein < 0.10 mg/dL (< or = 0.50); Calcium 9.7 mg/dL (8.4-10.2); Carbon Dioxide 26 mmol/L (22-29); Chloride 108 mmol/L (96-108); Cholesterol 175 mg/dL (<200); Estimated Glomerular Filt Rate > 60; Glucose Fasting 171 mg/dL (60-99); HDL Cholesterol 34 mg/dL (>40); LDL Cholesterol Calculated 97 mg/dL (<100); Magnesium 1.9 mg/dL (1.6-2.6); Sodium 143 mmol/L (135-145); Total Protein 7.1 g/dL (6.5-8.0); Triglycerides 220 mg/dL (<150)
[2024-08-02 08:49] LABS: TSH reflex Free T4 2.19 uIU/mL (0.32-4.0); Vitamin D 25-OH Total 47.6 ng/mL (>30)
[2024-08-02 08:59] LABS: Erythrocyte Sedimentation Rate 2 MM/HR (0-15)
[2024-08-02 09:08] LABS: Folate 13.6 ng/mL (> or = 4.0); Vitamin B12 618 pg/mL (200-900)
== END 2024-08-02 07:21 | disposition home or self-care (01) ==
LOC: HO.LAB 07:20
PROVIDERS: PCP Internal Medicine; Visit Provider Physician Assistant Medical
DX: Z00.00 Encounter for general adult medical examination without abnormal findings (principal); Z12.5 Encounter for screening for malignant neoplasm of prostate
CPT/HCPCS: 36415; 80053; 80061; 80076; 82248; 82306; 82607; 82746; 83735; 84153; 84443; 85025; 85652; 86140

== ENCOUNTER 2025-02-26 13:15 | Outpatient (AMB) | payer OTHER, SELFPAY ==
--- NOTE | 2025-02-26 13:32 | MHC.OFFVIS ---
Vital Signs 02/26/25 13:33 Height 5 ft 9 in Weight 177 lb 11.081 oz BMI 26.2 BP 100/68 Blood Pressure Location Lt brachial Position Sitting Pulse 79 Pulse Source Monitor Intake Visit Reasons: 1 yr f/up Intake Note: 1 yr f/up Clinical Team Manager Required: No Accompanied by: Self / Same As Patient Allergies No Known Allergies (No Known Allergies*) Allergy (Verified 07/26/24 11:10) Medication List - Last Reconciled 02/26/25 by George Hinds MD ascorbate calcium (vitamin C) 500 mg PO QDAY aspirin 81 mg PO DAILY cetirizine (Zyrtec) 10 mg PO DAILY PRN cholecalciferol (vitamin D3) 50 mcg PO DAILY fluticasone propionate 50 mcg/actuation 1 spray intranasal BID metoprolol succinate ER 25 mg PO BID 90 days simvastatin 20 mg PO QPM HPI Comments Details: 59-year-old gentleman with severe aortic valve stenosis who is status post aortic valve replacement with a 25 mm Inspiris valve on 03/24/[address] Hakeem Cortes. He is doing well after surgery. He has no chest discomfort shortness of breath. No dizziness or syncope. His echocardiography post surgery showed moderate severe right ventricular dysfunction. He has not had any symptoms. He underwent CTA to rule out pulmonary embolism. He returns for follow-up and continues to be active without any exertional symptoms. He was advised to stop amiodarone after 1 month but still has amiodarone as an active drug on his list. He is unclear whether he is taking it or not. I have explained it to him and his father that they need to check the medication bottles and call us whether he is taking it or not. In any case he should not be on amiodarone anymore. He is asking about dental workup and whether he needs antibiotics. He will need antibiotic prophylaxis before any dental workup in the future. 12/19/2022-he returns for follow-up. He had repeat echocardiography in August 2022. LV function is normal 55-60%. Normal right ventricular cavity size with borderline RV systolic function. Bioprosthetic aortic valve which appears to be functioning normally. He is working and is active at his work. No chest discomfort shortness of breath. No signs/symptoms of heart failure. 02/26/2024: He is here for follow-up. He has been doing well. He is active and has no exertional symptoms. Blood pressure well controlled. 02/26/2025: He is here for yearly follow-up. He has been doing well. No chest discomfort shortness of breath. Clinically stable. [facility] Medical History Overweight (BMI 25.0-29.9) Allergic rhinitis Pre-diabetes Essential hypertension Establishing care with new doctor, encounter for Severe aortic stenosis High cholesterol High blood pressure Surgical History Hx of aortic valve replacement Deviated nasal septum History of appendectomy Family History Mother No problems noted. Father No problems noted. Social History Housing: House Are you a primary long term care social worker to a significant other at home: No Do you presently have visiting nurse or other home services: No Alcohol intake: current Alcohol intake frequency: does not drink Patient Tobacco Use Status: Current someday Tobacco user Tobacco use type: Cigar Years Smoked: 10 +/- off/on only cigars service: No Current occupational status: employed Cognitive needs: No Hearing needs: No Vision needs: No Review of Systems Const Denies chills, Denies fatigue, Denies fever(s), Denies frequent falls, Denies weakness, Denies weight gain and Denies weight loss ENT Denies dizziness Card Denies chest pain, Denies leg edema, Denies lightheadedness, Denies palpitations, Denies dyspnea and Denies dyspnea on exertion Resp Denies cough, Denies dyspnea and Denies dyspnea on exertion GI Denies hematochezia Musc Denies abnormal gait, Denies muscle weakness, Denies numbness, Denies radiating pain into limb and Denies tingling Neuro Denies abnormal gait, Denies dizziness, Denies frequent falls, Denies numbness, Denies tingling and Denies weakness Endo Denies fatigue and Denies palpitations Physical Exam Vital Signs: Last Vital Signs Pulse 79 02/26/25 13:33 BP 100/68 02/26/25 13:33 BMI result Body Mass Index 26.2 GENERAL APPEARANCE: in no acute distress, pleasant. NECK: no carotid bruit, no jugular venous distention. SKIN: no suspicious lesions, warm and dry. HEART: no murmurs, regular rate and rhythm. LUNGS: clear to auscultation bilaterally. ABDOMEN: soft, nontender. EXTREMITIES: no edema. PERIPHERAL PULSES: equal. NEUROLOGIC: No gross deficits, AAO X 3 Office Procedures EKG Details: Sinus rhythm 79 beats per minute, right axis deviation, QTC 403 milliseconds. [id number], Complete Assessment & Plan Assessment & Plan (1) Essential hypertension: Code(s): I10 - Essential (primary) hypertension Category: Medical (2) S/P AVR: Code(s): Z95.2 - Presence of prosthetic heart valve Category: Medical Plan Pleasant 59-year-old gentleman who is here for follow-up. He has known history of severe aortic valve stenosis now status post aortic valve replacement. He had mild right ventricular dysfunction postop. No clinical signs of right ventricular failure. Clinically stable and no exertional intolerance. He will continue to follow up with us once a year. Thank you for allowing me to participate in the care of your patient. Please feel free to contact me if you have any questions. Coding Level of Care Code Est Pt Level 3 (65526) Diagnoses Essential hypertension I10 S/P AVR Z95.2 CPT Codes EKG - CPT: 62492-[id number], Complete ([id number])
[2025-02-26 13:33] VITALS: BP 100/68; PULSE 79; BMI 26.2
== END 2025-02-26 13:48 | disposition home or self-care (01) ==
LOC: HO.HCS 13:16
PROVIDERS: PCP Internal Medicine; Visit Provider Internal Medicine Cardiovascular Disease
DX: I10 Essential (primary) hypertension (principal); Z95.2 Presence of prosthetic heart valve
CPT/HCPCS: 93010; 99213

== ENCOUNTER → 2025-02-26 13:15 | Outpatient (BNVA) | payer OTHER, SELFPAY | PROVIDERS: PCP Internal Medicine; Visit Provider Internal Medicine Cardiovascular Disease | DX: Z48.812 Encounter for surgical aftercare following surgery on the circulatory system (principal); I10 Essential (primary) hypertension; Z95.2 Presence of prosthetic heart valve; Z79.82 Long term (current) use of aspirin; Z79.899 Other long term (current) drug therapy | CPT/HCPCS: 93005 ==